=== PATIENT | male | born 1995 | race Caucasian/White ===

== ENCOUNTER 2017-06-02 20:10 | Emergency (ER) | payer OTHER ==
[2017-06-02 20:25] VITALS: BP 126/75; PULSE 95; RESP 18; TEMP 98.7; O2SAT 97; BMI 25.7
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
== END 2017-06-02 22:10 | disposition home or self-care (01) ==
LOC: ED 20:10
DX: S69.92XA Unspecified injury of left wrist, hand and finger(s), initial encounter (principal); V49.9XXA Car occupant (driver) (passenger) injured in unspecified traffic accident, initial encounter; M25.532 Pain in left wrist